=== PATIENT | male | born 1965 ===

== ENCOUNTER 2017-12-20 07:22 | Day surgery (SDC) | payer MEDICARE ==
[2017-12-20] MEDS ORDERED: Acetaminophen-Codeine 300/30 mg Tab PO PRN (08:01)
[2017-12-20] MEDS ORDERED: Dextrose 5%/0.45% NS 1,000 ML IV SCH (08:15)
[2017-12-20] MEDS ORDERED: ceFAZolin 1 gm in NS 1 GM/100 ML BAG IVPB ONE (10:38)
[2017-12-20] MEDS ORDERED: Lactated Ringer's 1,000 ML IV ONE (10:40)
[2017-12-20] MEDS ORDERED: Propofol 10 mg/ml Inj (20 ML) ONE ×3 (10:42→11:10)
[2017-12-20] MEDS ORDERED: Succinylcholine Chloride 20 mg/ml Syr (5 ml) IV ONE (11:05)
[2017-12-20] MEDS ORDERED: Lactated Ringer's 1,000 ML IV SCH (11:45)
[2017-12-20 11:48] VITALS: O2SAT 100
--- NOTE | 2017-12-20 11:49 | CP.PCM.PN ---
Subjective - Date & Time of Evaluation Date of Evaluation: 12/20/17 Time of Evaluation: 11:47 - Subjective Subjective: patient could not be intubated therefore the case could not be done. I am referring patient to Dr. Lopez since anesthesiologist at [facility] have more experience with difficult intubations. I gave the patient Dr. Lopez's number and I gave Dr. Lopez the patient's number. I asked Dr. Lopez to see patient withing 2 weeks Objective - Vital Signs/Intake and Output Vital Signs (last 24 hours): Temp Pulse Resp BP Pulse Ox 97.9 F 52 L 20 119/78 97 12/20/17 08:08 12/20/17 08:08 12/20/17 08:08 12/20/17 08:08 12/20/17 08:08 - Medications Medications: Current Medications Acetaminophen/Codeine Phosphate (Tylenol/Codeine 300 Mg/30 Mg) 2 ea PO Q6 PRN PRN Reason: Pain, moderate (4-7) Dextrose/Sodium Chloride (Dextrose 5%/0.45% Ns 1000 Ml) 1,000 mls @ 100 mls/hr IV .Q10H JOAO Lactated Ringer's (Lactated Ringer's) 1,000 mls @ 100 mls/hr IV .Q10H JOAO Ketorolac Tromethamine (Toradol) 30 mg IVP ONCE PRN PRN Reason: Pain, moderate (4-7) Stop: 12/20/17 13:31 Ondansetron HCl (Zofran Inj) 4 mg IVP ONCE PRN PRN Reason: Nausea/Vomiting Stop: 12/20/17 13:32
[2017-12-20 12:34] VITALS: BP 107/71; PULSE 62; RESP 18; TEMP 97
== END 2017-12-20 14:58 | disposition home or self-care (01) ==
LOC: C.SDS 07:22
PROVIDERS: ATTEND Otolaryngology
DX: J38.1 Polyp of vocal cord and larynx (principal); Z53.8 Procedure and treatment not carried out for other reasons
CPT/HCPCS: J0690; J2001; J2704; J3010; J7040; J7120